=== PATIENT | female | born 1995 | race Caucasian/White ===

== ENCOUNTER 2017-09-19 12:54 | Emergency (ER) | payer MEDICAID, OTHER, SELFPAY ==
[2017-09-19 13:26] LABS: #Basophils 0.1 thou/uL (0.0-0.2); #Eosinphils 0.1 thou/uL (0.0-0.7); #Lymphocytes 1.6 thou/uL (1.20-3.40); #Monocytes 0.9 thou/uL (0.11-0.59); #Neutrophils 11.2 thou/uL (1.40-6.50); %Basophils 0.4 % (0.0-1.0); %Eosinophils 0.5 % (0.0-10.0); %Lymphocytes 11.7 % (21.0-51.0); %Monocytes 6.5 % (0.0-10.0); %Neutrophils 80.9 % (42.0-75.0); Hemoglobin 15.3 g/dL (12.0-16.0); Mean Corpuscular Hemoglobin 33.5 pg (27.0-31.0); Mean Corpuscular Volume 93.3 fl (81.0-99.0); Mean Platelet Volume 6.4 fL (7.4-10.4); Platelet Count 211 thou/uL (130-400); Red Blood Cell (RBC) Count 4.58 mill/uL (4.20-5.40); White Blood Cell (WBC) Count 13.8 thou/uL (4.8-10.8)
[2017-09-19 13:29] LABS: Bilirubin Negative (Negative); Blood, Urine Large (Negative); Clarity CLOUDY (Clear); Glucose, Urine (Dipstick) Negative (Negative); Leukocyte Large (Negative); Nitrite Negative (Negative); Protein, Urine (Dipstick) 30 mg/dL (Neg-Trace); Specific Gravity, Urine 1.013 (1.002-1.036); Urobilinogen 0.2 mg/dL (0.2-1.0); pH, Urine 6.5 (5.0-9.0)
[2017-09-19 13:31] LABS: Bacteria/HPF Rare-Few HPF (None Seen); Pathc Cast-AUWi Flag 1.76 (0-2.49); RBC/HPF GREATER THAN 50-TNTC HPF (0-3); Squamous Epithelial 0-3 HPF (0-3)
[2017-09-19 13:34] LABS: Hyaline Casts/LPF 0-3 HYALINE CAST LPF (0-3 Hyaline); Pregnancy Test - Urine (BHCG) Negative (Negative); Pregu Control Background? CLEAR/WHITE (CLR/WHITE); Pregu Control Bar Appear? YES (CONTROL BAR); Specific Gravity 1.013 (1.002-1.036)
[2017-09-19 13:47] LABS: ALT (SGPT) 13 U/L (8-55); AST (SGOT) 17 U/L (5-34); Albumin 4.2 g/dL (3.5-5.0); Alkaline Phosphatase 51 U/L (40-150); Anion Gap 14 mmol/L (10-20); BUN (Urea Nitrogen) 19 mg/dL (7.0-18.7); Bilirubin, Total 0.9 mg/dL (0.2-1.2); Calc. Creatinine Clearance 0 mL/min (70-130); Calcium 9.6 mg/dL (7.8-10.44); Carbon Dioxide 24 mmol/L (22-29); Chloride 104 mmol/L (98-107); Estimated GFR-MDRD 74; Globulin 3.1 g/dL (2.4-3.5); Potassium 4.2 mmol/L (3.5-5.1); Protein, Total 7.3 g/dL (6.0-8.3); Sodium 138 mmol/L (136-145)
[2017-09-19 13:53] LABS: Glucose 54 mg/dL (70-105)
--- NOTE | 2017-09-19 16:16 | CT ---
CT ABDOMEN NONCONTRAST CT PELVIS NONCONTRAST: (urolithiasis protocol) DATE: 09-19-17 TIME: 2:47 p.m. HISTORY: 22-year-old female with dysuria, nausea, and flank and back pain. COMPARISON: 08-28-15 TECHNIQUE: IV injection of iodinated contrast media: none Oral contrast media: none FINDINGS: Other than for urolithiasis, the lack of IV and oral contrast limits the evaluation. Typical for thi s age group, there is a paucity of visceral fat, which further limits the evaluation of a CT without oral or IV contrast. There is a punctate 1 or 2 mm calculus in a left renal calyx. This is not seen on the contrast enhanc ed CT of 08-28-15. There are several tiny punctate calcifications in the pelvis bilaterally. At least most of these are phleboliths. It is difficult to completely exclude the possibility that one of thes e could be in the distal ureter, because of lack of visceral fat and non-dilation of the ureter makin g it difficult to identify the ureter. However, there is no hydronephrosis. Previously, there was a pessary. That is no longer identified on the current CT. No free fluid or free air within the abdomin al cavity or pelvic cavity. Somewhat large volume of stool throughout the colon. No signs of acute co lonic diverticulitis. No small bowel dilation. No calculus in the urinary bladder. No abdominal aorti c aneurysm. Within the limitations of a noncontrast scan, no gross pathology identified involving the liver or spleen. Lung bases are clear. No evidence of ascites. IMPRESSION: 1. Possible constipation. 2. Minimal nephrolithiasis: Solitary 1-2 mm punctate calculus in left kidney. 3. No high grade obstructive uropathy. KR[facility] POS: [facility]
== END 2017-09-19 16:07 | disposition home or self-care (01) ==
LOC: ERS 12:54
DX: N12 Tubulo-interstitial nephritis, not specified as acute or chronic (principal); N20.0 Calculus of kidney; E16.2 Hypoglycemia, unspecified
CPT/HCPCS: 36415; 36416; 51701; 74176; 80053; 81003; 81015; 81025; 85025; 96361; 96374; A4353; J0696

== ENCOUNTER 2017-12-27 16:27 | Emergency (ER) | payer SELFPAY ==
[~2017-12-27 16:27] MED LIST: ISOVUE-370 76%-LOCM 1 ML ONE
--- NOTE | 2017-12-27 17:30 | RAD ---
PA AND LATERAL CHEST: HISTORY: Chest pain. COMPARISON: 05/02/2018 FINDINGS: The cardiomediastinum is normal. The lungs are well expanded without focal areas of consolidation, p neumothorax, or pleural effusion. No acute osseous abnormalities are seen. IMPRESSION: No radiographic evidence of acute cardiopulmonary process. POS: [facility]
[2017-12-27 18:46] LABS: #Basophils 0.1 thou/uL (0.0-0.2); #Eosinphils 0.1 thou/uL (0.0-0.7); #Lymphocytes 1.6 thou/uL (1.20-3.40); #Monocytes 0.7 thou/uL (0.11-0.59); #Neutrophils 4.8 thou/uL (1.40-6.50); %Basophils 0.8 % (0.0-1.0); %Eosinophils 1.4 % (0.0-10.0); %Monocytes 9.4 % (0.0-10.0); %Neutrophils 66.3 % (42.0-75.0); Mean Corpuscular HGB CONC 34.5 g/dL (32.0-36.0); Mean Corpuscular Hemoglobin 31.4 pg (27.0-31.0); Mean Platelet Volume 6.1 fL (7.4-10.4); Platelet Count 235 thou/uL (130-400); RBC Distribution Width 11.6 % (11.5-14.5); Red Blood Cell (RBC) Count 4.14 mill/uL (4.20-5.40); White Blood Cell (WBC) Count 7.3 thou/uL (4.8-10.8)
[2017-12-27 18:57] LABS: BHCG - Serum Negative (NEGATIVE); Pregs Control Background? CLEAR/WHITE (CLR/WHITE); Pregs Control Bar Appear? YES (CONTROL BAR)
[2017-12-27 19:07] LABS: ALT (SGPT) 11 U/L (8-55); AST (SGOT) 13 U/L (5-34); Alkaline Phosphatase 56 U/L (40-150); Anion Gap 12 mmol/L (10-20); BUN (Urea Nitrogen) 15 mg/dL (7.0-18.7); Bilirubin, Total 0.2 mg/dL (0.2-1.2); CK (CPK) 67 U/L (29-168); Calc. Creatinine Clearance 0 mL/min (70-130); Calcium 9.1 mg/dL (7.8-10.44); Carbon Dioxide 23 mmol/L (22-29); Chloride 108 mmol/L (98-107); Estimated GFR-MDRD Greater than 90; Globulin 3.1 g/dL (2.4-3.5); Glucose 89 mg/dL (70-105); Potassium 4.2 mmol/L (3.5-5.1); Protein, Total 7.1 g/dL (6.0-8.3); Sodium 139 mmol/L (136-145)
[2017-12-27 19:12] LABS: CKMB 0.2 ng/mL (0-6.6); Troponin I Less than 0.010 ng/mL (< 0.028)
[2017-12-27] MEDS ORDERED: Ketorolac Tromethamine 30 MG/ML VIAL ONE (19:34)
--- NOTE | 2017-12-27 20:08 | CT ---
CT ANGIO CHEST WITH CONTRAST: INDICATIONS: Elevated D-dimer. Chest pain. TECHNIQUE: Multiple axial tomograms obtained through the chest following pulmonary angio protocol with multiplan ar reconstruction and 3D post processing. FINDINGS: The pulmonary artery show adequate opacification. There is no evidence of pulmonary embolus identifi ed. The lung shabazz are clear. No evidence of infiltrate or effusion. The mediastinum is unremarkable. No adenopathy. IMPRESSION: 1. No evidence of pulmonary embolus. 2. No acute lung process. POS: [facility]
== END 2017-12-27 20:47 | disposition home or self-care (01) ==
LOC: ERS 16:27
DX: R07.89 Other chest pain (principal)
CPT/HCPCS: 36415; 71046; 71275; 80053; 82553; 84484; 84703; 85025; 85379; 93005; 96374; J1885

== ENCOUNTER 2018-02-07 08:37 | Emergency (ER) | payer OTHER, SELFPAY ==
[2018-02-07 09:03] LABS: #Eosinphils 0.1 thou/uL (0.0-0.7); #Lymphocytes 1.8 thou/uL (1.20-3.40); #Monocytes 0.4 thou/uL (0.11-0.59); #Neutrophils 3.3 thou/uL (1.40-6.50); %Basophils 0.5 % (0.0-1.0); %Eosinophils 1.5 % (0.0-10.0); %Lymphocytes 32.1 % (21.0-51.0); %Monocytes 7.4 % (0.0-10.0); %Neutrophils 58.4 % (42.0-75.0); Mean Corpuscular HGB CONC 33.8 g/dL (32.0-36.0); Mean Corpuscular Hemoglobin 31.1 pg (27.0-31.0); Mean Corpuscular Volume 92.1 fL (78.0-98.0); Mean Platelet Volume 6.1 fL (7.4-10.4); Platelet Count 219 thou/uL (130-400); RBC Distribution Width 11.4 % (11.5-14.5); Red Blood Cell (RBC) Count 4.81 mill/uL (4.20-5.40); White Blood Cell (WBC) Count 5.7 thou/uL (4.8-10.8)
[2018-02-07 09:18] LABS: Bilirubin Negative (Negative); Blood, Urine Trace (Negative); Clarity CLEAR (Clear); Glucose, Urine (Dipstick) Negative (Negative); Leukocyte Negative (Negative); Nitrite Negative (Negative); Protein, Urine (Dipstick) Negative (Neg-Trace); Specific Gravity, Urine 1.006 (1.002-1.036); Urobilinogen 0.2 mg/dL (0.2-1.0); pH, Urine 6.5 (5.0-9.0)
[2018-02-07 09:22] LABS: Bacteria/HPF None Seen HPF (None Seen); Hyaline Casts/LPF 0-3 HYALINE CAST LPF (0-3 Hyaline); RBC/HPF 0-3 HPF (0-3); Squamous Epithelial None Seen HPF (0-3); WBC/HPF 0-3 HPF (0-3)
[2018-02-07 09:23] LABS: Pregnancy Test - Urine (BHCG) Negative (Negative); Pregu Control Background? CLEAR/WHITE (CLR/WHITE); Pregu Control Bar Appear? YES (CONTROL BAR); Specific Gravity 1.006 (1.002-1.036)
[2018-02-07 09:34] LABS: ALT (SGPT) 23 U/L (8-55); AST (SGOT) 22 U/L (5-34); Albumin 4.3 g/dL (3.5-5.0); Alkaline Phosphatase 182 U/L (40-150); Anion Gap 11 mmol/L (10-20); BUN (Urea Nitrogen) 13 mg/dL (7.0-18.7); Bilirubin, Total 0.7 mg/dL (0.2-1.2); Calc. Creatinine Clearance 0 mL/min (70-130); Calcium 9.7 mg/dL (7.8-10.44); Carbon Dioxide 26 mmol/L (22-29); Chloride 107 mmol/L (98-107); Estimated GFR-MDRD 87; Globulin 3.2 g/dL (2.4-3.5); Glucose 79 mg/dL (70-105); Lipase 43 U/L (8-78); Potassium 4.4 mmol/L (3.5-5.1); Protein, Total 7.5 g/dL (6.0-8.3); Sodium 140 mmol/L (136-145)
[2018-02-09 01:18] LABS: Chlamydia by PCR Not Detected (NotDetected); GC by PCR Not Detected (NotDetected)
== END 2018-02-07 10:32 | disposition home or self-care (01) ==
LOC: ERS 08:37
DX: N89.8 Other specified noninflammatory disorders of vagina (principal)
CPT/HCPCS: 36415; 80053; 81003; 81015; 81025; 83690; 85025; 87480; 87491; 87510; 87591; 87660; 99284

== ENCOUNTER 2018-02-18 13:20 | Outpatient (CLI) | payer OTHER ==
[2018-02-18 13:37] VITALS: BMI 19.7
[2018-02-18 14:20] LABS: #Eosinphils 0.2 thou/uL (0.0-0.7); #Monocytes 0.7 thou/uL (0.11-0.59); %Basophils 0.6 % (0.0-1.0); %Eosinophils 2.4 % (0.0-10.0); %Lymphocytes 29.2 % (21.0-51.0); %Monocytes 9.7 % (0.0-10.0); %Neutrophils 58.2 % (42.0-75.0); Hemoglobin 13.9 g/dL (12.0-16.0); Mean Corpuscular HGB CONC 34.3 g/dL (32.0-36.0); Mean Corpuscular Hemoglobin 31.6 pg (27.0-31.0); Mean Platelet Volume 6.3 fL (7.4-10.4); Platelet Count 204 thou/uL (130-400); RBC Distribution Width 11.3 % (11.5-14.5); White Blood Cell (WBC) Count 6.9 thou/uL (4.8-10.8)
[2018-02-18 14:24] LABS: BHCG - Serum Negative (NEGATIVE); Pregs Control Background? CLEAR/WHITE (CLR/WHITE); Pregs Control Bar Appear? YES (CONTROL BAR)
[2018-02-18 14:48] LABS: Anion Gap 14 mmol/L (10-20); BUN (Urea Nitrogen) 18 mg/dL (7.0-18.7); Calc. Creatinine Clearance 87 mL/min (70-130); Calcium 9.8 mg/dL (7.8-10.44); Carbon Dioxide 26 mmol/L (22-29); Chloride 105 mmol/L (98-107); Estimated GFR-MDRD Greater than 90; Glucose 96 mg/dL (70-105); Potassium 4.2 mmol/L (3.5-5.1); Sodium 141 mmol/L (136-145)
== END 2018-02-18 13:21 | disposition home or self-care (01) ==
LOC: LABBT 13:20
PROVIDERS: ATTEND Specialist
DX: Z01.812 Encounter for preprocedural laboratory examination (principal); K43.9 Ventral hernia without obstruction or gangrene
CPT/HCPCS: 80048; 84703; 85025

== ENCOUNTER 2018-02-22 08:32 | Day surgery (SDC) | payer OTHER ==
[2018-02-22] MEDS ORDERED: Lidocaine 1% PF 5 ML VIAL ONE (10:15)
[2018-02-22] MEDS ORDERED: Ondansetron HCl/PF 4 MG/2 ML Vial ONE (10:15)
[2018-02-22] MEDS ORDERED: Dexamethasone 20 MG/5 ML VIAL ONE (10:15)
[2018-02-22] MEDS ORDERED: Ketorolac Tromethamine 30 MG/ML VIAL ONE (10:15)
[2018-02-22] MEDS ORDERED: PHENYLEPHRINE-NS 100 MCG/ML 10 ML SYRINGE ONE (10:15)
[2018-02-22] MEDS ORDERED: Glycopyrrolate 0.2 MG/ML 5 ML SYRINGE ONE (10:15)
[2018-02-22] MEDS ORDERED: PROPOFOL 200 MG/20 ML VIAL ONE (10:15)
[2018-02-22] MEDS ORDERED: ePHEDrine/0.9% NaCl/PF SYRINGE 50 mg/10 ml ONE (10:15)
--- NOTE | 2018-02-23 08:51 | OP ---
DATE OF PROCEDURE: 02/22/2018 PREOPERATIVE DIAGNOSIS: Supraumbilical ventral hernia. POSTOPERATIVE DIAGNOSIS: Supraumbilical ventral hernia. OPERATION PERFORMED: Repair of supraumbilical ventral hernia with mesh patch using a 4.3 cm Ventrale x mesh patch. SURGEON: Raj Mercedes M.D. ANESTHESIA: General endotracheal. INDICATIONS: The patient is a 22-year-old white female. She has a visible and palpable bulge superi or to her umbilicus and was taken to the operating at this time for repair of an obvious hernia. DESCRIPTION OF OPERATION: Informed consent was obtained. The patient was taken to the operating shelly m where general endotracheal anesthesia was obtained with the patient in supine position. Abdomen wa s prepped with ChloraPrep and draped in sterile fashion. Local anesthetic was infiltrated using 0.25 % Marcaine with epinephrine. A midline supraumbilical incision was created. Dissection was carried through skin and subcutaneous tissue down to the hernia sac. This was dissected circumferentially an d dissection was carried down to the fascial defect. The hernia contents were all fatty and suspecte d to be a combination of preperitoneal fat and omentum. These were all carefully resected using elec trocautery and passed off the field. The fascial defect was identified and found to be about a centi meter. This was debrided to viable tissue. A preperitoneal dissection was carried out digitally. A 4.3 cm Ventralex mesh patch was then obtained and placed within the preperitoneal space. The tails of the mesh patch were secured to fascia superiorly and inferiorly with single interrupted sutures of 0 Prolene. Lateral aspects of the defect were closed with additional 0 Prolene sutures. These inco rporated bites of the anterior leaflet of the mesh. The wound was then irrigated and hemostasis was ensured. It was closed in layers using 3-0 Vicryl to approximate the deep layers and to close the de ad space. Skin edges were approximated with 4-0 Monocryl subcuticular suture. Dermabond was placed externally. There were no complications. The patient tolerated the procedure well and was taken to recovery room in stable condition.
== END 2018-02-22 15:25 | disposition home or self-care (01) ==
LOC: SDC 08:32
PROVIDERS: ATTEND Specialist
PROC: 0WUF0JZ Supplement Abdominal Wall with Synthetic Substitute, Open Approach (ICD-10-PCS; principal; 2018-02-22)
DX: K43.9 Ventral hernia without obstruction or gangrene (principal); N92.6 Irregular menstruation, unspecified; D64.9 Anemia, unspecified; Z88.8 Allergy status to other drugs, medicaments and biological substances
CPT/HCPCS: J1100; J1885; J2001; J2405; J2704